=== PATIENT | male | born 1985 | race African-American/Black ===

== ENCOUNTER 2022-02-10 01:44 | Emergency (ER) | payer SELFPAY ==
[~2022-02-10] VITALS: Ht 175.3 cm; Wt 105.0 kg
[2022-02-10 02:00] VITALS: BP 165/95
[2022-02-10] MEDS ORDERED: ACETAMINOPHEN 325MG TABLET PO ONE (02:45)
[2022-02-10] MEDS ORDERED: IBUP-2028 MT (03:49)
[2022-02-10] MEDS ORDERED: TOPUD PO (03:49)
== END 2022-02-10 04:00 | disposition home or self-care (01) ==
LOC: ER 01:44
DX: U07.1 COVID-19 (principal)
CPT/HCPCS: 87426; 87804; 99283; C9803